=== PATIENT | female | born 1975 | race Caucasian/White ===

== ENCOUNTER 2019-12-13 12:14 | Emergency (ER) | payer OTHER ==
[~2019-12-13] VITALS: Ht 162.6 cm; Wt 65.5 kg
[~2019-12-13 12:14] MED LIST: NORCO 325 MG-51 TAB PO
[2019-12-13 12:24] VITALS: BP 103/71; TEMP 97.8
[2019-12-13 13:58] VITALS: PULSE 89
== END 2019-12-13 13:58 | disposition home or self-care (01) ==
LOC: COL.ER 12:14
DX: S22.32XD Fracture of one rib, left side, subsequent encounter for fracture with routine healing (principal); G89.11 Acute pain due to trauma; Z88.3 Allergy status to other anti-infective agents; Z90.89 Acquired absence of other organs; Z90.710 Acquired absence of both cervix and uterus; W19.XXXA Unspecified fall, initial encounter